=== PATIENT | female | born 1980 | race Caucasian/White ===

== ENCOUNTER 2018-08-17 05:49 | Day surgery (SDC) | payer OTHER ==
[2018-08-17 07:01] LABS: ADD MAN DIFF? NO
[2018-08-17 07:03] LABS: ADD UMIC NO; BASOPHILS % 0.4 % (0.0-2.0); EOSINOPHILS # 0.1 10^3/ul (0.0-0.5); EOSINOPHILS % 1.3 % (0.0-7.0); HEMATOCRIT 45.2 % (37.0-47.0); HEMOGLOBIN 15.3 g/dl (12.0-16.0); LYMPHOCYTES # 2.8 10^3/ul (0.8-2.9); LYMPHOCYTES % 27.3 % (15.0-51.0); MEAN CORPUSCULAR HEMOGLOBIN 29.1 pg (29.0-33.0); MEAN CORPUSCULAR HGB CONC 33.8 g/dl (32.0-37.0); MEAN CORPUSCULAR VOLUME 86.1 fl (82.0-101.0); MEAN PLATELET VOLUME 8.9 fl (7.4-10.4); MONOCYTE # 0.9 10^3/ul (0.3-0.9); MONOCYTES % 8.7 % (0.0-11.0); NEUTROPHIL # 6.4 10^3/ul (1.6-7.5); PLATELET COUNT 363 10^3/UL (140-415); RED BLOOD COUNT 5.25 10^6/ul (4.20-5.40); RED CELL DISTRIBUTION WIDTH 12.2 % (11.5-14.5); UR ASCORBIC ACID NEGATIVE (NEGATIVE); UR BILIRUBIN (Dip) NEGATIVE (NEGATIVE); UR BLOOD (Dip) NEGATIVE (NEGATIVE); UR CLARITY CLEAR (CLEAR); UR COLOR YELLOW (YELLOW); UR GLUCOSE (Dip) NEGATIVE (NEGATIVE); UR KETONES (Dip) NEGATIVE (NEGATIVE); UR LEUKOCYTE ESTERASE (Dip) NEGATIVE Leu/ul (NEGATIVE); UR NITRITE (Dip) NEGATIVE (NEGATIVE); UR TOTAL PROTEIN (Dip) NEGATIVE (NEGATIVE); UR UROBILINOGEN (Dip) NEGATIVE (NEGATIVE)
[2018-08-17 07:03] LABS: WHITE BLOOD COUNT 10.2 10^3/ul (4.8-10.8)
[2018-08-17] MEDS: SOD CHLORIDE 0.9% 1,000 ML IV (07:26)
[2018-08-17 07:27] LABS: ALANINE AMINOTRANSFERASE 25 IU/L (13-69); ALBUMIN 4.3 g/dl (3.3-4.9); ALBUMIN/GLOBULIN RATIO 1.34; ALKALINE PHOSPHATASE 77 IU/L (42-121); ANION GAP 9 (5-13); ASPARTATE AMINO TRANSFERASE 24 IU/L (15-46); BILIRUBIN,INDIRECT 0.3 mg/dl (0-1.1); BILIRUBIN,TOTAL 0.3 mg/dl (0.2-1.3); BLOOD UREA NITROGEN 11 mg/dl (7-20); CALCIUM 9.2 mg/dl (8.4-10.2); CARBON DIOXIDE 22 mmol/L (21-31); CHLORIDE 110 mmol/L (97-110); Estimated GFR > 60 mL/min (>60); GLUCOSE 105 mg/dl (70-220); POTASSIUM 4.1 mmol/L (3.5-5.1); SODIUM 141 mmol/L (135-144); TOTAL PROTEIN 7.5 g/dl (6.1-8.1)
[2018-08-17 07:41] LABS: INR 0.98; PROTIME 13.1 Sec (11.9-14.9)
[2018-08-17 07:42] LABS: PARTIAL THROMBOPLASTIN TIME 32.7 Sec (23.0-35.0)
[2018-08-17] MEDS ORDERED: CEFAZOLIN 1 GM INJ (07:45)
[2018-08-17] MEDS ORDERED: PROPOFOL 40 ML (07:45)
[2018-08-17] MEDS ORDERED: LIDOCAINE 2% (SDV) 5 ML INJ (07:45)
[2018-08-17] MEDS ORDERED: ALBUTEROL 0.083% (NEB) 2.5 MG/3 ML AMP ×5 (07:45→07:50)
[2018-08-17] MEDS ORDERED: MIDAZOLAM 1 MG/ML 2 ML INJ (07:45)
[2018-08-17] MEDS ORDERED: DEXAMETHASONE 4 MG/ML 5 ML INJ (07:47)
[2018-08-17] MEDS ORDERED: PROVENTIL HFA 6.7GM INHALER (07:55)
[2018-08-17] MEDS: BUPIVACAINE 0.5%/EPI (SDV) 30 ML INJ (08:18)
[2018-08-17] MEDS ORDERED: METOCLOPRAMIDE 10 MG INJ (08:28)
[2018-08-17] MEDS ORDERED: CEFAZOLIN 2 GM/50 ML (PMX) 50 ML IVPB (08:30)
[2018-08-17] MEDS: BUPIVACAINE 0.5% (SDV) 30 ML INJ (08:54)
[2018-08-17] MEDS ORDERED: NEOMYC/POLYMYX/BACIT 30 GM OINT (08:58)
[2018-08-17] MEDS ORDERED: FENTAnyl 50 MCG/ML VIAL IV (09:30)
[2018-08-17] MEDS ORDERED: ALBUTEROL 0.083% (NEB) 2.5 MG/3 ML AMP HHN (09:30)
[2018-08-17] MEDS ORDERED: LABETALOL HCL 20MG INJ IV (09:30)
[2018-08-17] MEDS ORDERED: ONDANSETRON 4 MG INJ IV (09:30)
[2018-08-17] MEDS ORDERED: MEPERIDINE 25 MG INJ IV (09:30)
[2018-08-17] MEDS: FENTAnyl 50 MCG/ML VIAL IV (09:58)
== END 2018-08-17 10:40 | disposition home or self-care (01) ==
LOC: SDS 05:49
DX: N60.11 Diffuse cystic mastopathy of right breast (principal); N64.89 Other specified disorders of breast; E03.9 Hypothyroidism, unspecified
CPT/HCPCS: 19120; 80053; 81003; 84703; 85025; 85610; 85730; 88305